=== PATIENT | female | born 1995 | race Caucasian/White ===

== ENCOUNTER 2019-06-13 08:29 | Outpatient (CLI) | payer OTHER ==
[~2019-06-13] VITALS: Ht 162.6 cm; Wt 93.9 kg
[2019-06-13 08:58] VITALS: BP 149/71
[2019-06-13 10:53] VITALS: BP 144/86
--- NOTE | 2019-06-14 10:03 | HPE ---
DATE OF ADMISSION: 06/13/2019 23-year-old 2, para 1, last menstrual period (LMP) 10/25/2018, estimated date of confinement (EDC) 08/01/2019 at 33 weeks. History of diarrhea and nausea attending a wedding and since she has been here, she has had no diarrhea or cramps. RISK FACTORS: She is GBS positive urine, section times one, non-reassuring heart tones, chlamydia positive - test of cure negative, body mass index BMI is 29.9. Past history is primary section 41 weeks, non-reassuring heart, 7 pounds. Labs are A+, hep negative, RPR negative, Pap normal. Urine negative, then subsequent urine with GBS positive. Gonorrhea was negative, Chlamydia was positive test of cure was negative. 1-hour glucose was 97. On examination, no distress, pale-looking female having some cramps. Symphysis fundus height is 34. Four quadrant bowel sounds are noted. Vertex presenting NST category 1 moderate variability. No decelerations. Blood pressure 149/71, respirations 18, pulse 92, temperature 97.4. Urine is not available. She has presently had no diarrhea at 33 weeks of gestation. She was counseled regarding [employer], vaginal bleeding, discharge or cramps involving uterine contractions. She has a followup appointment with [facility]. She was given a quarter restriction so that she would not work tonight. and that she would not work tonight. She was discharged undelivered
== END 2019-06-13 11:18 | disposition home or self-care (01) ==
LOC: M LDO 08:29
PROVIDERS: ATTEND Obstetrics & Gynecology
DX: O26.893 Other specified pregnancy related conditions, third trimester (principal); R11.0 Nausea; Z3A.33 33 weeks gestation of pregnancy; O99.820 Streptococcus B carrier state complicating pregnancy; R10.2 Pelvic and perineal pain
CPT/HCPCS: 59025; G0378; G0463

== ENCOUNTER 2019-07-26 06:28 | Inpatient (IN) | payer OTHER ==
--- NOTE | 2019-07-22 09:29 | HPE ---
DATE OF ADMISSION: 07/26/2019 This lady is a 23-year-old 2, para 1, last menstrual period (LMP) is 10/25/2018, estimated date of confinement (EDC) 08/01/2019, booked for elective repeat section on 07/26/2019. PAST HISTORY: In February 2017 at 41 weeks, primary section for nonreassuring heart rate and intolerance. Risk factors are primary section February 2017, body mass index (BMI) is 30, had a positive C chlamydia, test of cure was negative. LABORATORY DATA: She is A+, HIV negative, hepatitis negative, RPR negative, rubella immune. Varicella immune. Pap normal. Urine was negative. Gonorrhea was negative. Chlamydia was positive, test of cure was negative. One-hour glucose was 97 and she is GBS positive on urine. On examination, no acute distress. Symphysis fundus height is 39, vertex presenting, heart is 144 beats per minute. Incision is clean and dry. Blood pressure is 140/79, respirations 18, pulse is 100. The rest of the examination is unremarkable. Normocephalic, atraumatic. Neck: Full range of motions. Pupils equal and reactive to light. Distal pulses are symmetric. No evidence of deep vein thrombosis (DVT), pulmonary embolism (PE) or superficial phlebitis. Chest is clear bilaterally to bases. No wheezes or rhonchi. No costovertebral angle (CVA) tenderness. Abdomen: Soft. Four quadrant bowel sounds are noted. Appropriate symphysis fundus height and vertex presenting. She has no rashes, lesions or pruritus. No arthralgia or myalgia. No complaint joint pain. No complaint of cough, wheezes, shortness of breath, or dyspnea on exertion. No nausea, vomiting, diarrhea or constipation. No urgency. No frequency. No diabetic. No heat or cold intolerance issues. In summary, we have a term gestation for repeat section. We discussed trial of labor after section (TOLAC) which the patient declined. We discussed the risks and benefits of repeat section including hemorrhage, infection, perforation, , reoperation, remote possibility of blood transfusion, remote possibility of hysterectomy, remote possibility of laceration or/and admission to the intensive care unit (NICU). The patient expressed understanding of the risks and benefits and signed the consent form. All questions were answered. A 30-minute discussion including examination and patient is booked for elective repeat section on 07/26/2019.
[2019-07-26] VITALS (8 sets, daily range): BP systolic 111–129; BP diastolic 62–76
[~2019-07-26] VITALS: Ht 162.6 cm; Wt 98.0 kg
[~2019-07-26 06:28] MED LIST: AZITHROMYCIN INJ 500 MG, VIAL MATE ADAPTER 1 EACH in D5W 250 ML IV ONE; BICITRA 30ML SOLN UDC PO ONE
[2019-07-26] MEDS ORDERED: MAPA500T2 PO (07:20)
[2019-07-26] MEDS ORDERED: PRENTAB9 PO (07:20)
[2019-07-26] MEDS ORDERED: BUPIVACAINE HCL 0.25% 10 ML VIAL SC ONE (08:00)
[2019-07-26] MEDS ORDERED: LACTATED RINGER'S 1000 ML IV ONE (08:00)
[2019-07-26] MEDS ORDERED: ceFAZolin SOD 2 GM in IV 1 EA IV ONE (08:00)
[2019-07-26] MEDS ORDERED: ACETAMINOPHEN 650 MG SUPP PR ONE (08:00)
[2019-07-26 08:12] LABS: HEMATOCRIT 33.2 % (36.0-47.0); HEMOGLOBIN 10.8 g/dl (12.0-15.5); MEAN CORPUSCULAR HEMOGLOBIN 28.5 pg (27.0-33.0); MEAN CORPUSCULAR HGB CONC 32.5 g/dl (32.0-36.5); MEAN CORPUSCULAR VOLUME 87.6 fl (80.0-96.0); PLATELET COUNT, AUTOMATED 133 10^3/uL (150-450); RED BLOOD COUNT 3.79 10^6/uL (4.00-5.40); WHITE BLOOD COUNT 14.2 10^3/uL (4.0-10.0)
[2019-07-26] MEDS: LR 1,000 ML IV SCH ×3 (09:16→18:11)
[2019-07-26] MEDS ORDERED: MORPHINE PRES-FREE INJ 10 MG/10 ML VIAL (J2274) As Ordered ONE (09:55)
[2019-07-26] MEDS ORDERED: ONDANSETRON 4MG/2ML VIAL (J2405) IV PRN ×2 (09:59→11:45)
[2019-07-26] MEDS ORDERED: NALOXONE INJ 0.4 MG/1 ML VIAL (J2310) IV PRN ×2 (09:59)
[2019-07-26] MEDS ORDERED: METOCLOPRAMIDE INJ 10MG/2ML VIAL (J2765) IV PRN (09:59)
[2019-07-26] MEDS ORDERED: diphenhydrAMINE INJ 50MG/ML VIAL (J1200) IV PRN (09:59)
[2019-07-26] MEDS ORDERED: NALBUPHINE HCL 10 MG/ML AMP (J2300) IV PRN (09:59)
[2019-07-26] MEDS ORDERED: ePHEDrine SULFATE 25 MG/5 ML(5MG/ML) SYRINGE As Ordered ONE (10:06)
[2019-07-26] MEDS ORDERED: PHENYLephrine HCL 500 MCG/5 ML (100MCG/ML) SYRINGE (J2370) As Ordered ONE (10:11)
[2019-07-26 10:45] LABS: CORD GAS ABE A -17.6; CORD GAS HCO3 A 16.4 MEQ/L; CORD GAS O2 SAT A 40.5 %; CORD GAS PCO2 A 83.6 mmHg; CORD GAS PO2 A 30.2 mmHg; CORD GAS SBC A 10.6 MEQ/L
[2019-07-26 10:46] LABS: CORD GAS ABE V -18.4; CORD GAS HCO3 V 15.2 MEQ/L; CORD GAS O2 SAT V 56.7 %; CORD GAS PCO2 V 75.8 mmHg; CORD GAS PO2 V 41.4 mmHg; CORD GAS SBC V 10.4 MEQ/L; CORD GAS TCO2 V 17.6 MEQ/L
[2019-07-26] MEDS ORDERED: OXYTOCIN INJ 10 UNITS/ML VIAL (J2590) As Ordered ONE (11:07)
[2019-07-26] MEDS ORDERED: ONDANSETRON 4MG/2ML VIAL (J2405) As Ordered ONE (11:07)
[2019-07-26] MEDS ORDERED: OXYTOCIN DRIP 30 UNITS in IV 1 EA IV SCH (11:10)
[2019-07-26] MEDS ORDERED: DOCUSATE SODIUM 100 MG CAP PO PRN (11:15)
[2019-07-26] MEDS ORDERED: IBUPROFEN 600 MG TAB PO PRN (11:15)
[2019-07-26] MEDS ORDERED: ACETAMINOPHEN 500 MG TAB PO PRN (11:15)
[2019-07-26] MEDS ORDERED: RHOGAM 300 MCG (1500 IU) INJ (J2790) IM SCH (11:15)
[2019-07-26] MEDS ORDERED: ANUSOL HC CREAM 30GM TOP PRN (11:15)
[2019-07-26] MEDS ORDERED: OXYTOCIN INJ 10 UNITS/ML VIAL (J2590) IV ONE (11:15)
[2019-07-26] MEDS ORDERED: ACETAMINOPHEN TAB 650MG DOSE (2X325MG) PO PRN (11:15)
[2019-07-26] MEDS ORDERED: IBUPROFEN 800 MG TAB PO PRN (11:15)
[2019-07-26] MEDS ORDERED: MEASLES,MUMPS,RUBELLA VACCINE INJ (MMR-II) (90707) SC SCH (11:15)
[2019-07-26 11:30] LABS: CORD GAS PH A 6.911 UNITS
[2019-07-26 11:31] LABS: CORD GAS PH V 6.921 UNITS
[2019-07-26] MEDS ORDERED: fentaNYL 100 MCG/2 ML INJECTION (J3010) IV PRN (11:45)
[2019-07-26] MEDS ORDERED: LR 1,000 ML IV SCH (11:45)
[2019-07-26] MEDS ORDERED: KETOROLAC 30 MG/ML VIAL (J1885) As Ordered ONE (12:01)
[2019-07-26] MEDS: KETOROLAC 30 MG/ML VIAL (J1885) IV SCH ×2 (12:04→17:50)
[2019-07-26] MEDS: NALBUPHINE HCL 10 MG/ML AMP (J2300) IV PRN ×2 (12:10→12:12)
[2019-07-26] MEDS ORDERED: NALBUPHINE HCL 10 MG/ML AMP (J2300) As Ordered ONE (12:11)
[2019-07-26] MEDS: PERCOCET 5MG/325MG TAB PO PRN (13:36)
[2019-07-27] MEDS: KETOROLAC 30 MG/ML VIAL (J1885) IV SCH ×2 (00:25→05:43)
--- NOTE | 2019-07-27 00:40 | RO ---
DATE OF PROCEDURE: 07/26/2019 PREOPERATIVE DIAGNOSIS: Repeat section. POSTOPERATIVE DIAGNOSIS: Repeat section. OPERATION PROPOSED: Repeat section. OPERATION PERFORMED: Repeat section. SURGEON: Dr. Pascual Ryan AXLE INSPECTOR: Mukund for extraction, retraction and visualization. ANESTHESIA: Spinal plus local anesthetic for intraperitoneal procedures. ESTIMATED BLOOD LOSS: 300 mL DESCRIPTION OF PROCEDURE: After adequate time-out, prepped and draped in the supine position, Julio catheter in the bladder draining clear urine. Acetaminophen suppository 1300 mg per rectum, sequentials in place. Appropriate antibiotics preop. A skin incision was made through the previous incisional site passing through abdominal layers securing hemostasis. Opening the peritoneal cavity, the Mobius was placed. A low transverse incision was made into the uterus draining clear liquor. We delivered a live male weighing 7 pounds 10 ounces, 3458 grams, scores of 7 and 8 at one and five minutes respectively. Arterial pH 6.911, base excess -17.6, venous pH 6.92, base excess -18.4. The placenta was manually removed, three vessels in the cord, membranes and tissues intact. The uterus contracted well under Pitocin. The lower segment was oversewn in the usual fashion in two layers and reperitonealization was performed. With instrument and pad count correct, both ovaries and tubes appeared to be normal. The uterus was well contracted. The abdomen was then closed, running stitch for the peritoneum, same for the fascia, interrupted for subcu and Dexon to the skin, Marcaine 0.25% 10 mL to the skin with spray and Telfa, and the patient was taken back to the recovery room in good condition. This lady had a hypotensive episode from spinal to incision in which her blood pressures were 80/30 and 70/30 reflected in the acidemia of the baby at delivery. Baby was immediately taken to the intensive care unit (NICU), apparently is doing well and has recovered from this episode of maternal severe hypotension.
[2019-07-27 02:00] VITALS: BP 119/58
[2019-07-27 06:00] VITALS: BP 115/59
[2019-07-27 06:46] LABS: HEMATOCRIT 28.2 % (36.0-47.0); HEMOGLOBIN 9.3 g/dl (12.0-15.5); MEAN CORPUSCULAR HEMOGLOBIN 29.1 pg (27.0-33.0); MEAN CORPUSCULAR VOLUME 88.1 fl (80.0-96.0); PLATELET COUNT, AUTOMATED 143 10^3/uL (150-450); WHITE BLOOD COUNT 10.3 10^3/uL (4.0-10.0)
--- NOTE | 2019-07-27 07:13 | IPNPDOC ---
Progress Note Date of Service: Jul 27, 2019 Day#: 1 Progress Note SUBJECT: Patient is a 23-year-old 2 now Para 2 status post uncomplicated RLTCS, doing well postoperative day # 1. She has been ambulating, voiding spontaneously without issue and tolerating regular diet. Pumping without issue to stimulate collostrum. Reports lochia is like a normal period. Patient is ambulating well. Reports some cramping with . Has appropriate pain (only soreness). Voiding since removal of burroughs. OBJECTIVE: VITAL SIGNS: Within normal limits, afebrile. GENERAL: No acute distress HEENT: MMM BREAST: Nontender, no erythema CARDIOVASCULAR EXAMINATION: RRR RESPIRATORY EXAMINATION: Bilaterally clear ABDOMINAL EXAMINATION: Soft, appropriate tenderness, nondistended, fundus -2 PERINEUM: Intact, minimal lochia EXTREMITIES: no edema, nontender WOUND: Dressing clean and intact ASSESSMENT: Patient is a 23-year-old 2 now Para 2 status post uncomplic ated RLTCS, doing well postoperative day # 1. Vitals within normal limits, afebrile, hemodynamically stable with no evidence of infection. PLAN: 1. Routine advances. 2. Tylenol and Motrin and percocet for pain. 3. Encourage breast feeding and ambulation. VS, I&O, 24H, Fishbone Vital Signs/I&O Vital Signs Date Time Temp Pulse Resp B/P (MAP) Pulse Ox O2 Delivery O2 Flow Rate FiO2 07/26/19 18:00 97.6 115 17 121/62 (81) 96 Room Air Laboratory Data 24H LABS Laboratory Tests 2 07/26/19 07:59: Nucleated Red Blood Cells % (auto) 0.0 07/26/19 08:02: Serology Scanned Report Hepatitis B Testing 07/26/19 10:17: Cord Arterial Blood pH 6.911*L, Cord Arterial Blood PCO2 83.6, Cord Arterial Blood PO2 30.2, Cord Arterial Blood HCO3 16.4, Cord Arterial Blood Total CO2 19.0, Cord Arterial Blood Base Excess -17.6, Cord Arterial Base Excess (Standard 10.6, Cord Arterial Bld Oxygen Saturation 40.5, Cord Venous Blood pH 6.921*L, Cord Venous Blood PCO2 75.8, Cord Venous Blood PO2 41.4, Cord Venous Blood HCO3 15.2, Cord Venous Blood Total CO2 17.6, Cord Venous Base Excess (Actual) -18.4, Cord Venous Base Excess (Standard) 10.4, Cord Venous Blood Oxygen Saturation 56.7 CBC/BMP Laboratory Tests 07/26/19 07:59 Fransisca Duval MD Jul 26, 2019 20:02
[2019-07-27] MEDS: LR 1,000 ML IV SCH ×3 (08:00→20:07)
[2019-07-27 10:00] VITALS: BP 108/69
[2019-07-27] MEDS: PRENATAL VITAMINS CHEWABLE TABLET PO SCH (12:13)
[2019-07-27] MEDS: PERCOCET 5MG/325MG TAB PO PRN ×2 (12:16→18:30)
--- NOTE | 2019-07-27 12:42 | IPN ---
DATE: 07/27/2019 day #1 and postoperative day #1. This lady had a repeat section of a live- male infant. Unfortunately, the baby had some metabolic acidosis issues and is presently intensive care unit (NICU) on oxygen intravenous (IV). Today, mother is doing well. Blood pressure is 115/59, respirations 16, pulse 111, temperature is 98.3. Her admitting hemoglobin was 10.8, hematocrit 33.2, and platelets are 133. day #1 hemoglobin 9.3, hematocrit 28.2, and platelets are 143. We discussed phlebitis, cystitis, mastitis, metritis, cellulitis, diet, exercise, pain management, and perineal, breast, and wound care. We also discussed the fact that the baby still in NICU but is progressing nicely, and we anticipate after having a consultation with NICU the baby will be released to the mother's care as soon as possible. The patient and baby are tolerating procedure well. The patient is planning on possible discharge tomorrow or the following day.
[2019-07-27] MEDS: IBUPROFEN 800 MG TAB PO PRN ×2 (13:43→21:48)
[2019-07-27 14:00] VITALS: BP 113/53
[2019-07-27] MEDS ORDERED: IBUPROFEN 600 MG TAB PO PRN (14:00)
[2019-07-27 18:00] VITALS: BP 119/74
[2019-07-27 22:07] VITALS: BP 128/73
[2019-07-28] MEDS: PERCOCET 5MG/325MG TAB PO PRN ×2 (00:34→07:58)
[2019-07-28 02:23] VITALS: BP 119/71
[2019-07-28] MEDS: IBUPROFEN 800 MG TAB PO PRN (05:50)
[2019-07-28 06:35] VITALS: BP 118/76
[2019-07-28] MEDS ORDERED: PERCOCET PO (07:47)
[2019-07-28] MEDS ORDERED: DOCU100C16 PO (07:47)
[2019-07-28] MEDS ORDERED: PROC1CRE5 TOP (07:47)
[2019-07-28] MEDS ORDERED: IBUP80TA PO (07:47)
[2019-07-28] MEDS: PRENATAL VITAMINS CHEWABLE TABLET PO SCH (07:57)
--- NOTE | 2019-07-28 15:10 | DSES ---
DATE OF ADMISSION: 07/26/2019 DATE OF DISCHARGE: 07/28/2019 This lady is a 23-year-old 2 now para 2 who had a repeat section, live male infant, 7 pounds 10 ounces, 3458 grams, scores of 7 and 8 at 1 and 5 minutes, respectively. The patient became severely hypotensive after the spinal and a prolonged scrub ended with the baby being acidotic and requiring admission to intensive care unit (NICU). Presently, the patient is well. We discussed phlebitis, cystitis, mastitis, endometritis, cellulitis, diet, exercise, pain management, perineal/breast/wound care. Today her blood pressure is 118/76, respirations 18, pulse 74, temperature 98.3. Her discharge hemoglobin 9.3, hematocrit 28.2 and platelets are 143. The patient's medications are at [place]. We instituted 2-week incision check and 6-week check. The rest of the examination is unremarkable. Normocephalic, atraumatic. Neck with full range of motion. Pupils equal and reactive to light. Distal pulse symmetric. No evidence of DVT, PE or superficial phlebitis. Chest is clear bilaterally to the bases. No wheezes or rhonchi. No CVA tenderness. Abdomen: Soft. Four quadrant bowel sounds are noted. Incision is clean and dry. Uterus is 2 below. Lochia is moderate. No rashes, lesions or pruritus. No arthralgia, myalgia. No complaint joint pain. No complaint cough, wheezes, shortness of breath or dyspnea on exertion. She has no urgency, frequency. No incontinence either. We had a 20-minute discussion. All questions were answered. The patient was discharged to followup at 2 weeks for incision check at [facility].
--- NOTE | 2019-07-30 08:58 | IPN ---
DATE: 07/26/2019 This patient requested circumcision of her male after discussing risks and benefits of circumcision, medical and nonmedical indications, the penile block and aftercare. Expressed understanding of penile block, aftercare and bleeding. Signed the consent form. All questions were answered. 20-minute discussion. We await clearance by the supervisor tank cleaning.
== END 2019-07-28 10:15 | disposition home or self-care (01) | DRG 773 ==
LOC: M LDI 06:28 → M OBS 13:00
PROVIDERS: ADMIT Obstetrics & Gynecology; ATTEND Obstetrics & Gynecology
PROC: 10D00Z1 Extraction of Products of Conception, Low, Open Approach (ICD-10-PCS; principal; 2019-07-26 09:30)
DX: O34.211 Maternal care for low transverse scar from previous cesarean delivery (principal); Z37.0 Single live birth; Z3A.41 41 weeks gestation of pregnancy; I95.89 Other hypotension